=== PATIENT | female | born 1970 | race Caucasian/White ===

== ENCOUNTER 2017-04-10 00:56 | Emergency (ER) | payer MEDICAID ==
[2017-04-10] MEDS ORDERED: LIDOCAINE 2% SQ ONE (01:08)
[2017-04-10] MEDS ORDERED: EPI SQ ONE (01:08)
[2017-04-10] MEDS: KETOROLAC 30 MG/ML VIAL IM ONE (01:10)
--- NOTE | 2017-04-10 01:21 | Emergency Department Record ---
History of Present Illness - General Chief complaint: Dental Stated complaint: DENTAL PAIN Time Seen by Provider: 04/10/17 01:03 Source: Patient Mode of Arrival: Ambulatory Limitations: No limitations - History of Present Illness Initial comments: 47 yo female presents with left sided dental pain on and off for one month. The pain is on the upper and lower teeth. No swelling. No pus. No facial redness or changes. No neck pain. No ear pain. No fevers. No swollen glands. She has a dental appointment on . No NVD. MD complaint: Tooth pain -: Week(s) (4) Severity: Severe Severity scale (1-10): >10 Quality: Aching Consistency: Constant Improves with: None Worsens with: Eating Context-Epistaxis: History of similar Context- Dental: History of dental caries, Poor dental care - Related Data Previous Rx's Medication Instructions Recorded Naproxen [Naprosyn] 500 mg PO Q12H #20 tab.dr 03/23/16 Penicillin V Potassium 500 mg PO Q6H #27 tab 03/23/16 Penicillin V Potassium 500 mg PO Q6H #28 tab 04/10/17 Allergies Allergy/AdvReac Type Severity Reaction Status Date / Time codeine phosphate AdvReac VOMITING Verified 03/23/16 01:24 [From Tylenol-Codeine #3] hydrocodone bitartrate AdvReac ITCHING Verified 03/23/16 01:24 [From Vicodin] Review of Systems Constitutional: Denies: Chills, Fever, Malaise, Weakness Eyes: Denies: Eye discharge ENT: Reports: As per HPI, Dental pain. Denies: Congestion, Throat pain Respiratory: Denies: Cough, Dyspnea, Hemoptysis, Wheezes Cardiovascular: Denies: Chest pain, Palpitations, Syncope Endocrine: Denies: Fatigue Gastrointestinal: Denies: Abdominal pain, Diarrhea, Nausea, Vomiting Genitourinary: Denies: Dysuria, Urgency Musculoskeletal: Denies: Arthralgia, Back pain, Myalgia Skin: Denies: Bruising, Rash Neurological: Denies: Confusion, Headache Psychiatric: Denies: Anxiety Hematological/Lymphatic: Denies: Easy bleeding, Easy bruising, Swollen glands Past Medical History - SOCIAL HISTORY Smoking Status: Current every day smoker - RESPIRATORY Hx Respiratory Disorders: No - CARDIOVASCULAR Hx Cardio Disorders: No - NEURO Hx Neuro Disorders: No - GI Hx GI Disorders: No - Hx Genitourinary Disorders: No - ENDOCRINE Hx Endocrine Disorders: No - MUSCULOSKELETAL Hx Musculoskeletal Disorders: No - PSYCH Hx Psych Problems: No - HEMATOLOGY/ONCOLOGY Hx Hematology/Oncology Disorders: No Physical Exam - General General Appearance: Alert, Oriented x3, Cooperative, Other (tearful due to pain) Limitations: No limitations - Head Head exam: Normal inspection - Eye Eye exam: Normal appearance, PERRL. negative: Conjunctival injection, Periorbital swelling, Scleral icterus - ENT ENT exam: Normal exam, Mucous membranes moist, Normal orophraynx, TM's normal bilaterally Ear exam: Normal external inspection. negative: External canal tenderness Nasal Exam: Normal inspection. negative: Discharge, Sinus tenderness Mouth exam: Normal external inspection, Tongue normal. negative: Drooling, Muffled voice, Tongue elevation, Trismus Teeth exam: Dental caries, Dental tenderness # (14,19), Other (No abscess, no swelling). negative: Gingival enlargement Throat exam: Normal inspection. negative: Tonsillar erythema, Tonsillar exudate Image of Mouth/Teeth: 1 - decay with cavity, no abscess or gum swelliing, various wide spread decay, no mass or swelling. - Neck Neck exam: Normal inspection. negative: Lymphadenopathy, Meningismus, Tenderness - Respiratory Respiratory exam: Normal lung sounds bilaterally. negative: Respiratory distress - Cardiovascular Cardiovascular Exam: Regular rate, Normal rhythm, Normal heart sounds - Rectal Rectal exam: Deferred - exam: Deferred - Extremities Extremities exam: Normal inspection - Back Back exam: Reports: Normal inspection, Full ROM. Denies: Muscle spasm, Rash noted, Tenderness - Neurological Neurological exam: Alert, CN II-XII intact, Normal gait, Oriented X3, Reflexes normal - Psychiatric Psychiatric exam: Normal affect, Normal mood. negative: Agitated, Anxious - Skin Skin exam: Dry, Intact, Normal color, Warm Course - Reevaluation(s) Reevaluation #1: No facial swelling or asymmetry No dental abscess The patient requests a block for the pain. 04/10/17 01:08 Reevaluation #2: An inferior alveolar block was performed with 3.5ml of Lidocaine/Bupivicaine Mix 50:50 The patient tolerated this well. She got complete pain relief We discussed close follow up with her PCP. 04/10/17 01:36 Disposition Disposition: Discharge Clinical Impression: Dental cavity Disposition: Home, Self-Care Condition: (1) Good Instructions: Dental Caries (ED) Additional Instructions: Call your dentist tomorrow for close follow up of your dental pain Return if you have uncontrolled pain, swelling or new concerns. Prescriptions: Penicillin V Potassium 500 mg PO Q6H #28 tab Forms: Patient Portal Access Time of Disposition: 01:38
[2017-04-10] MEDS: ONDANSETRON 4 MG ODT TABLET SL ONE (01:40)
[2017-04-10] MEDS: HYDROMORPHONE HCL 1 MG/ML CPJ IM ONE (01:41)
[2017-04-10] MEDS: PENICILLIN V POTASSIUM 250 MG TAB PO ONE (02:33)
== END 2017-04-10 02:38 | disposition home or self-care (01) ==
LOC: ER 00:56
DX: K02.9 Dental caries, unspecified (principal)
CPT/HCPCS: 64400 ×2; 99284 ×2; 96372; J1885; J1170

== ENCOUNTER 2019-08-16 17:46 | Emergency (ER) | payer MEDICAID ==
[2019-08-16] MEDS ORDERED: ONDANSETRON HCL IV 4 MG/2 ML VIAL IVP ONE (17:54)
[2019-08-16] MEDS ORDERED: KETOROLAC 30 MG/ML VIAL IVP ONE (17:54)
--- NOTE | 2019-08-16 17:58 | Emergency Department Record ---
History of Present Illness - General Chief complaint: Flu Like Symptoms Stated complaint: FLU Time Seen by Provider: 08/16/19 17:54 Source: Patient Mode of Arrival: Ambulatory Limitations: No limitations - History of Present Illness Initial comments: 49 yo female presents to ED for evaluation of sore throat, body aches, and non- productive cough symptoms for the past 2 days. Patient deneis abdominal pain or dysuria symptoms, denies health problems at her baseline. Patariadnaet reports "I feel sore all over and I know I'm dehydrated". Patient reports recent ill contact as well. Patient has not taken anything for her symptoms at home. MD Complaint: Generalized weakness Onset/Timin -: Days(s) Location: Generalized Severity: Moderate Quality: Aching Consistency: Constant Improves with: None Worsens with: None - [place] Coma Scale Eye Response: (4) Open spontaneously Motor Response: (6) Obeys commands Verbal Response: (5) Oriented [place] Total: 15 - Related Data Previous Rx's Medication Instructions Recorded Ondansetron [Zofran Odt] 4 mg PO Q8H PRN #15 tab.rapdis 08/16/19 Allergies Allergy/AdvReac Type Severity Reaction Status Date / Time codeine phosphate AdvReac VOMITING Verified 08/16/19 17:50 [From Tylenol-Codeine #3] hydrocodone bitartrate AdvReac ITCHING Verified 08/16/19 17:50 [From Vicodin] Review of Systems Constitutional: Reports: Malaise, Weakness. Denies: Chills, Fever, Night sweats Eyes: Denies: Eye discharge, Eye pain ENT: Denies: Congestion, Ear pain, Epistaxis Respiratory: Denies: Cough, Dyspnea Cardiovascular: Denies: Chest pain, Dyspnea on exertion Endocrine: Denies: Fatigue, Heat or cold intolerance Gastrointestinal: Reports: Nausea. Denies: Abdominal pain, Vomiting Genitourinary: Denies: Incontinence, Retention Musculoskeletal: Reports: Myalgia. Denies: Arthralgia, Back pain Skin: Denies: Bruising, Change in color Neurological: Reports: Headache. Denies: Abnormal gait, Confusion, Tingling, Tremors Psychiatric: Denies: Anxiety Hematological/Lymphatic: Denies: Anemia, Blood Clots Past Medical History - SOCIAL HISTORY Smoking Status: Current every day smoker - RESPIRATORY Hx Respiratory Disorders: No - CARDIOVASCULAR Hx Cardio Disorders: No - NEURO Hx Neuro Disorders: No - GI Hx GI Disorders: No - Hx Genitourinary Disorders: No - ENDOCRINE Hx Endocrine Disorders: No - MUSCULOSKELETAL Hx Musculoskeletal Disorders: No - PSYCH Hx Psych Problems: No - HEMATOLOGY/ONCOLOGY Hx Hematology/Oncology Disorders: No Physical Exam - General General Appearance: Alert, Oriented x3, Cooperative, Mild distress Limitations: No limitations - Head Head exam: Atraumatic, Normocephalic, Normal inspection Head exam detail: negative: Abrasion, Contusion, Fraser's sign, General tenderness, Hematoma, Laceration - Eye Eye exam: Normal appearance. negative: Conjunctival injection, Periorbital swelling, Periorbital tenderness, Scleral icterus - ENT Ear exam: negative: Auricular hematoma, Auricular trauma Nasal Exam: negative: Active bleeding, Discharge, Dried blood, Foreign body Mouth exam: negative: Drooling, Laceration, Muffled voice, Tongue elevation Throat exam: Tonsillar erythema. negative: Tonsillomegaly, Tonsillar exudate, R peritonsillar mass, L peritonsillar mass - Neck Neck exam: Normal inspection. negative: Meningismus, Tenderness - Respiratory Respiratory exam: Normal lung sounds bilaterally. negative: Respiratory distress, Rhonchi, Stridor, Wheezes - Cardiovascular Cardiovascular Exam: Regular rate, Normal rhythm, Normal heart sounds - GI/Abdominal GI/Abdominal exam: Soft. negative: Distended, Rebound, Rigid, Tenderness - Rectal Rectal exam: Deferred - exam: Deferred - Extremities Extremities exam: Other (Splint right upper extremity). negative: Calf tenderness, Pedal edema, Tenderness - Back Back exam: Denies: CVA tenderness (R), CVA tenderness (L) - Neurological Neurological exam: Alert, Normal gait, Oriented X3 - Psychiatric Psychiatric exam: Normal affect, Normal mood - Skin Skin exam: Normal color. negative: Abrasion Type of lesion: negative: abrasion Course - Reevaluation(s) Reevaluation #1: 08/16/19 19:14 Laboratory studies were reviewed and appear grossly unremarkable for an acute process. Temperature improved. Awaiting UA sample to exclude pyelonephritis. Patient reports that her symptoms are improved. Reevaluation #2: 08/16/19 20:11 UA reviewed and appears negative for infection. Patient reports that her symptoms are improved, patient appears stable for discharge at this time. Medical Decision Making - Lab Data Result diagrams: 08/16/19 18:40 08/16/19 18:40 Disposition Disposition: Discharge Clinical Impression: Viral syndrome Disposition: Home, Self-Care Condition: (2) Stable Instructions: Viral Syndrome (ED) Additional Instructions: Return to ED if your symptoms worsen or if you have any concerns. Tylenol and Ibuprofen as needed. Zofran as needed. Follow-up with your family doctor in 1-3 days as directed. Prescriptions: Ondansetron [Zofran Odt] 4 mg PO Q8H PRN #15 tab.rapdis PRN Reason: Nausea/Vomiting Forms: Patient Portal Access Time of Disposition: 20:11 Quality - Quality Measures Quality Measures: N/A - Blood Pressure Screening Does Patient Have Any of the Following: No Blood Pressure Classification: Normal BP Reading Systolic Measurement: 115 Diastolic Measurement: 64 Screening for High Blood Pressure: < Normal BP, F/U Not Required > [G8783]
[2019-08-16] MEDS ORDERED: 0.9 % SODIUM CHLORIDE 1000ML 1,000 ML IV SCH (18:00)
[2019-08-16] MEDS ORDERED: ACETAMINOPHEN 500 MG TABLET PO ONE (18:36)
[2019-08-16 18:49] LABS: ABSOLUTE NEUTROPHIL COUNT 4.94; HEMATOCRIT 38.8 % (35.0-47.0); HEMOGLOBIN 12.4 gm/dl (11.6-16.0); MEAN CELL VOLUME 93.5 fl (81-97); MEAN CORPUSCULAR HEMOGLOBIN 29.9 pg (27-33); MEAN PLATELET VOLUME 9.6 fl (7.4-10.4); PLATELET COUNT 247 K/uL (130-400); RED BLOOD COUNT 4.15 M/uL (3.80-5.40); RED CELL DISTRIBUTION WIDTH 13.7 % (11.5-14.5); WHITE BLOOD COUNT W/O DIFF 6.1 K/uL (4.2-12.2)
[2019-08-16 18:57] LABS: PLATELET ESTIMATE NORMAL (NORMAL)
[2019-08-16 19:03] LABS: BLOOD UREA NITROGEN 7 mg/dL (6-20); CREATININE 0.7 mg/dL (0.5-0.9); EST GLOMERULAR FILTRATION RATE > 60 mL/min
[2019-08-16 19:04] LABS: TOTAL PROTEIN 6.9 g/dL (6.6-8.7)
[2019-08-16 19:06] LABS: GLUCOSE,RANDOM 153 mg/dL (74-109)
[2019-08-16 19:08] LABS: ALT/SGPT 11 U/L (<33)
[2019-08-16 19:09] LABS: ALB/GLOB RATIO 1.8 (1.1-1.8); ALBUMIN 4.4 g/dL (4.0-5.0); ALKALINE PHOSPHATASE 69 U/L (35-104); AST/SGOT 15 U/L (10.0-35.0)
[2019-08-16 20:03] LABS: URINE APPEARANCE CLEAR; URINE BILIRUBIN NEGATIVE (NEGATIVE); URINE BLOOD NEGATIVE (NEGATIVE); URINE COLOR YELLOW; URINE GLUCOSE (UA) NEGATIVE (NEGATIVE); URINE KETONE TRACE (NEGATIVE); URINE LEUKOCYTE ESTERASE TRACE (NEGATIVE); URINE NITRITE NEGATIVE (NEGATIVE); URINE PROTEIN NEGATIVE (NEGATIVE)
[2019-08-16 20:08] LABS: URINE RBC 0 - 2 (NONE SEEN); URINE WBC 0 - 2 (0-2/hpf)
[2019-08-16 20:09] LABS: URINE BACTERIA FEW; URINE MUCUS MODERATE
== END 2019-08-16 20:20 | disposition home or self-care (01) ==
LOC: ER 17:46
DX: B34.9 Viral infection, unspecified (principal); R50.81 Fever presenting with conditions classified elsewhere; R05 Cough; R53.1 Weakness; F17.210 Nicotine dependence, cigarettes, uncomplicated
CPT/HCPCS: 99284 ×2; 96374; 96375; 80053; 81001; 85027; J1885; J2405; J7030

== ENCOUNTER 2020-01-03 11:52 | Emergency (ER) | payer MEDICAID ==
[2020-01-03] MEDS ORDERED: 0.9 % SODIUM CHLORIDE 1,000 ML BAG IV ONE (12:08)
[2020-01-03] MEDS ORDERED: DIPHENHYDRAMINE HCL 50 MG/ML VIAL IVP ONE (12:08)
[2020-01-03] MEDS ORDERED: METOCLOPRAMIDE HCL 10 MG/2 ML VIAL IVP ONE (12:08)
[2020-01-03] MEDS ORDERED: KETOROLAC 30 MG/ML VIAL IVP ONE (12:08)
--- NOTE | 2020-01-03 12:08 | Emergency Department Record ---
History of Present Illness - General Chief Complaint: Headache Migraine Stated Complaint: MIGRAINE HEADACHE Time Seen by Provider: 01/03/20 11:59 Source: Patient Mode of Arrival: Ambulatory Limitations: No limitations - History of Present Illness Initial Comments: 49 yo female presents with a headache. She reports a history of migraines for about 15 years. The onset was last night. She had not slept and been dealing with other stress and thinks it tripped her migraine. She is light sensitive, noise sensitive, nauseated. She does get auras with her migraines and vision changes. This is not new or unusual. No trauma. No fever. No chills. She states she usually gets "the cocktail" and feels better. No extremity weakness, numbness, tingling. No confusion. MD Complaint: Headache, "Migraine" -: Hour(s) Onset Description: Gradual Location: Frontal, Occipital Severity: Severe Quality: Aching Consistency: Constant Improves With: Nothing Worsens With: Light, Noise Context: Other (emotional stress) Associated Symptoms: Nausea, Photophobia, Sensitivity to sound Other Symptoms: Other Treatments Prior to Arrival: Other - Related Data Previous Rx's Medication Instructions Recorded Ondansetron [Zofran Odt] 4 mg PO Q8H #15 tab.rapdis 01/03/20 Allergies Allergy/AdvReac Type Severity Reaction Status Date / Time codeine phosphate AdvReac VOMITING Verified 01/03/20 12:05 [From Tylenol-Codeine #3] hydrocodone bitartrate AdvReac ITCHING Verified 01/03/20 12:05 [From Vicodin] Review of Systems Constitutional: Denies: Chills, Fever, Malaise, Weakness, Weight change Eyes: Reports: Photophobia, Vision change (typical). Denies: Eye discharge, Eye pain ENT: Denies: Congestion, Throat pain Respiratory: Denies: Cough, Dyspnea, Wheezes Cardiovascular: Denies: Chest pain, Palpitations, Syncope Endocrine: Denies: Fatigue Gastrointestinal: Reports: Nausea, Vomiting. Denies: Abdominal pain, Diarrhea Genitourinary: Denies: Dysuria, Urgency Musculoskeletal: Denies: Arthralgia, Back pain, Myalgia, Neck pain Skin: Denies: Bruising, Change in color, Rash Neurological: Reports: Headache, Vertigo. Denies: Abnormal gait, Confusion, Numbness, Paresthesias, Seizure, Tingling, Tremors, Weakness Psychiatric: Denies: Anxiety Hematological/Lymphatic: Denies: Easy bleeding, Easy bruising Past Medical History - SOCIAL HISTORY Smoking Status: Current every day smoker - RESPIRATORY Hx Respiratory Disorders: No - CARDIOVASCULAR Hx Cardio Disorders: No - NEURO Hx Neuro Disorders: No - GI Hx GI Disorders: No - Hx Genitourinary Disorders: No - ENDOCRINE Hx Endocrine Disorders: No - MUSCULOSKELETAL Hx Musculoskeletal Disorders: No - PSYCH Hx Psych Problems: No - HEMATOLOGY/ONCOLOGY Hx Hematology/Oncology Disorders: No Physical Exam - General General Appearance: Alert, Oriented x3, Cooperative, No acute distress Limitations: No limitations - Head Head exam: Atraumatic, Normal inspection - Eye Eye exam: Normal appearance, PERRL. negative: Conjunctival injection, Nystagmus, Periorbital swelling, Scleral icterus - ENT ENT exam: Normal exam, Mucous membranes moist Ear exam: Normal external inspection Nasal Exam: Normal inspection Mouth exam: Normal external inspection - Neck Neck exam: Normal inspection, Full ROM. negative: Lymphadenopathy, Tenderness - Respiratory Respiratory exam: Normal lung sounds bilaterally. negative: Accessory muscle use, Decreased breath sounds, Rhonchi, Stridor, Wheezes - Cardiovascular Cardiovascular Exam: Regular rate, Normal rhythm, Normal heart sounds - GI/Abdominal GI/Abdominal exam: Soft. negative: Tenderness - Rectal Rectal exam: Deferred - exam: Deferred - Extremities Extremities exam: Normal inspection. negative: Calf tenderness, Pedal edema - Back Back exam: Denies: CVA tenderness (R), CVA tenderness (L) - Neurological Neurological exam: Alert, CN II-XII intact, Normal gait, Oriented X3, Reflexes normal, Other (No ataxia, clear speech, symmetric examination, ). negative: Abnormal gait, Altered, Motor sensory deficit - Psychiatric Psychiatric exam: Normal affect, Normal mood. negative: Agitated, Anxious - Skin Skin exam: Dry, Intact, Normal color, Warm Course - Reevaluation(s) Reevaluation #1: 01/03/20 14:12 The patient is doing well with well controlled nausea and migraine. She is comfortable with DC. We discussed at length reasons to immediately return to the ED as well as close follow up. She was given an Rx Zofran 01/03/20 18:43 Disposition Disposition: Discharge Clinical Impression: Migraine headache Disposition: Home, Self-Care Condition: (1) Good Instructions: Migraine Headache (ED) Additional Instructions: Review this ER visit and the tests performed with your family doctor Call your doctor for the next available follow up appointment Return to the ER for a recheck immediately if worse, any new concerns or questions Take the prescriptions provided as directed Prescriptions: Ondansetron [Zofran Odt] 4 mg PO Q8H #15 tab.rapdis Forms: Patient Portal Access Time of Disposition: 14:12 Quality - Quality Measures Quality Measures: N/A, Headache (All Ages) - Headache: Neuroimaging Quality Measure: Measure #419: Overuse of Neuroimaging ICD10 Codes Entered: Yes Neurological Exam: Patient had a normal neurological exam. [G9535] Headache: Use of Neuroimaging: < CTA, CT, MRA or MRI was NOT ordered > [G9534] - Blood Pressure Screening Does Patient Have Any of the Following: No Blood Pressure Classification: Normal BP Reading Systolic Measurement: 111 Diastolic Measurement: 66 Screening for High Blood Pressure: < Normal BP, F/U Not Required > [G8783]
== END 2020-01-03 14:31 | disposition home or self-care (01) ==
LOC: ER 11:52
DX: G43.909 Migraine, unspecified, not intractable, without status migrainosus (principal); R11.0 Nausea; H53.149 Visual discomfort, unspecified; F17.210 Nicotine dependence, cigarettes, uncomplicated
CPT/HCPCS: 99284 ×2; 96374; 96375; J1200; J1885; J2765; J7030